=== PATIENT | female | born 1960 | race Caucasian/White ===

== ENCOUNTER 2019-11-17 07:36 | Emergency (ER) | payer OTHER ==
[~2019-11-17] VITALS: Ht 157.5 cm; Wt 57.0 kg
[2019-11-17 07:58] VITALS: BP 142/70
[2019-11-17] MEDS ORDERED: METH-38 PO (08:11)
[2019-11-17] MEDS ORDERED: HYDR-3164 PO (08:11)
[2019-11-17] MEDS ORDERED: PRED20TA PO (08:11)
[2019-11-17] MEDS ORDERED: NAPR-514 PO (08:11)
--- NOTE | 2019-11-17 08:12 | PHYS DOC ---
General Adult EDM: Chief Complaint: LOWER EXT PAIN HPI: HPI: Patient is a 59-year-old female with a history of sciatica. She states in June 2018 she originally injured her low back. Since that time she has had therapy and injections she has bulging disks and an annular tear that occasionally act up on her. It is been sometime since she is needed aggressive treatment on her back. Today she states that after working through the night she has a lot of pain in her back into her left buttock and down her left leg. She denies any bowel or bladder dysfunction. She does state that the pain feels like a lightening bolt down her leg. [] Review of Systems: Review of Systems: Constitutional: Denies fever or chills. [] Eyes: Denies change in visual acuity. [] HENT: Denies nasal congestion or sore throat. [] Respiratory: Denies cough or shortness of breath. [] Cardiovascular: Denies chest pain or edema. [] GI: Denies abdominal pain, nausea, vomiting, bloody stools or diarrhea. [] : Denies dysuria. [] Musculoskeletal: Per HPI. [] Integument: Denies rash. [] Neurologic: Denies headache, focal weakness or sensory changes. [] Endocrine: Denies polyuria or polydipsia. [] Lymphatic: Denies swollen glands. [] Psychiatric: Denies depression or anxiety. [] Heart Score: Risk Factors: Risk Factors: DM, Current or recent (<one month) smoker, HTN, HLP, family history of CAD, obesity. Risk Scores: Score 0 - 3: 2.5% MACE over next 6 weeks - Discharge Home Score 4 - 6: 20.3% MACE over next 6 weeks - Admit for Clinical Observation Score 7 - 10: 72.7% MACE over next 6 weeks - Early Invasive Strategies Physical Exam: PE: Constitutional: Well developed, well nourished, moderate distress, non-toxic appearance. [] HENT: Normocephalic, atraumatic, bilateral external ears normal, oropharynx moist, no oral exudates, nose normal. [] Eyes: PERRLA, EOMI, conjunctiva normal, no discharge. [] Neck: Normal range of motion, no tenderness, supple, no stridor. [] Cardiovascular:Heart rate regular rhythm, no murmur [] Lungs & Thorax: Bilateral breath sounds clear to auscultation [] Abdomen: Bowel sounds normal, soft, no tenderness, no masses, no pulsatile cat s. [] Skin: Warm, dry, no erythema, no rash. [] Back: Left paraspinal muscle spasm no midline vertebral tenderness. [] Extremities: No tenderness, no cyanosis, no clubbing, ROM intact, no edema. [] Neurologic: Alert and oriented X 3, normal motor function, 2+ patellar reflex on the left [] Psychologic: Depressed affect. [] EKG: EKG: [] Radiology/Procedures: Radiology/Procedures: [] Course & Med Decision Making: Course & Med Decision Making Pertinent Labs and Imaging studies reviewed. (See chart for details) [] Dragon Disclaimer: Dragon Disclaimer: This electronic medical record was generated, in whole or in part, using a voice recognition dictation system. Departure Departure Impression: Primary Impression: Sciatica Qualified Codes: M54.32 - Sciatica, left side Disposition: HOME, SELF-CARE Condition: STABLE Patient Instructions: Sciatica, Sciatica with Rehab-SportsMed Additional Instructions: You need to follow with your primary care physician and given the severity of your condition currently you will need another MRI scan. Scripts Methocarbamol (ROBAXIN-750) 750 Mg Tablet 1 TAB PO TID, #90 TAB Prov: YAMIL COY DO 11/17/19 Prednisone (PREDNISONE) 20 Mg Tablet 1 TAB PO TID PRN for SCIATICA for 5 Days, #15 TAB Prov: YAMIL COY DO 11/17/19 Hydrocodone/Apap 5-325 (NORCO 5-325 TABLET) 1 Each Tablet 1 TAB PO PRN Q6HRS PRN for PAIN, #15 TAB 0 Refills Prov: YAMIL COY DO 11/17/19 Naproxen (NAPROXEN) 500 Mg Tablet 1 TAB PO BID PRN for PAIN, #30 TAB 1 Refill Prov: AYMIL COY DO 11/17/19 Justicifation of Admission Dx: Justifications for Admission: Justification of Admission Dx: YAMIL Estrada DO Nov 17, 2019 08:11
[2019-11-17] MEDS ORDERED: KETOROLAC 60 MG/2 ML VIAL. IM ONE (08:15)
[2019-11-17] MEDS ORDERED: ORPHENADRINE CITRATE 60 MG/2 ML VIAL. IM ONE (08:15)
[2019-12-01] MEDS ORDERED: ESTR2TAB PO (11:16)
== END 2019-11-17 08:42 | disposition home or self-care (01) ==
LOC: ER 07:36
DX: M54.42 Lumbago with sciatica, left side (principal)
CPT/HCPCS: 96372; 99284; J1885; J2360

== ENCOUNTER → 2019-11-24 | Outpatient (CLI) | payer OTHER ==
[2019-11-17 07:58] VITALS: BP 142/70
[~2019-11-24] MED LIST: ESTR2TAB PO; HYDR-3164 PO; METH-38 PO; NAPR-514 PO; PRED20TA PO
--- NOTE | 2019-11-24 11:57 | KCIC ---
EXAM: Lumbar spine MRI without contrast. HISTORY: Radiculopathy. TECHNIQUE: Multiplanar, multisequence magnetic resonance imaging of the lumbar spine was performed without contrast. COMPARISON: None. FINDINGS: There is mild lumbar hyperlordosis and scoliosis. There is grade 1 anterolisthesis of L4 on L5. There is no suspicious osseous lesion. There is no fracture. The conus terminates at L1-L2. There are incidental left greater than right nerve root sheath cysts/perineural cysts at T11-T12 and on the right at T12-L1 and L3-L4. These are of no clinical significance. At L1-L2 and L2-L3, there is no stenosis. At L3-L4, there is a minimal disc bulge and endplate remodeling. There is no stenosis. At L4-L5, there is a minimal disc bulge and endplate remodeling. There is moderate left facet arthropathy with a 9 x 8 x 6 mm complex left facet joint synovial cyst projecting into the left posterior central canal. There is results in moderate central canal narrowing and deviation of the traversing nerve roots. There is also a small right posterior facet joint synovial cyst at this level measuring 6 mm. At L5-S1, there is a minimal disc bulge and endplate remodeling. There is severe right facet arthropathy. There is no stenosis. IMPRESSION: 1. L4-L5: 9 mm left facet joint synovial cyst projecting into the left posterior central canal and contributing to moderate central canal stenosis and deviation of the traversing nerve roots. 2. Degenerative change throughout the remainder of the lumbar spine, without significant foraminal or central canal stenosis. Electronically signed by: Kitty Bullock MD (11/24/2019 11:54 AM) [id number]
== END ==
LOC: KCIC MRI 10:48
PROVIDERS: ATTEND Nurse Practitioner Gerontology
DX: M47.26 Other spondylosis with radiculopathy, lumbar region (principal); M71.38 Other bursal cyst, other site
CPT/HCPCS: 72148

== ENCOUNTER → 2019-12-01 | Outpatient (CLI) | payer OTHER ==
[2019-11-17 07:58] VITALS: BP 142/70
[~2019-12-01] MED LIST changes: +IOHEXOL 180 MG/ML 10 ML VIAL. ONE; +methylPREDNISolone ACETATE 40 MG/ML VIAL. ONE; +methylPREDNISolone ACETATE 80 MG/ML VIAL. ONE
--- NOTE | 2019-12-01 11:39 | PDOC2 ---
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 Patient reports the pain began most immediately in the low back left lower extremity posterior gluteus posterior lateral thigh lateral anterior thigh medial thigh as well as the posterior knee. Patient reports it is constant now sharp stabbing shooting changes during the day worse with walking standing changing positions patient reports it wakes her from sleep least 2-3 times at night, does not affect her bowel bladder control but does affect her ability to walk she not use any assistive devices to ambulate. Patient has tried physical therapy as recently as last year also has had chiropractic treatment and epidural injections last year as well none of which is been significantly helpful for long period of time. Patient taken naproxen prednisone as well as methocarbamol all of which did not seem to decrease the pain significantly. Patient rates her disability rating 0-10 10 being the worst is an 8 with family home responsibilities recreation social activity occupation sexual behavior 6 with self-care and life support activities. Patient ports no loss of motor function but significant fatigability the left leg even with just standing for more than about 10 minutes. This also gets worse with bending and stooping. Patient did have a MRI scan lumbar spine showing L4-5 9 mm left facet joint synovial cyst projecting to the left posterior central canal contributing to moderate central canal stenosis and deviation of the transversing nerve roots. PAST MEDICAL HISTORY: PMH: No significant medical conditions patient is been in good health PREVIOUS SURGERIES: Past Surgical Hx: Total bowel hysterectomy 2009 x3, bilateral carpal tunnel release, right acromioplasty, cervical anterior fusion 2003 CURRENT MEDICATIONS: Current Meds: Active Scripts Medications Dose Route/Sig Max Daily Dose Days Date Category Estradiol 2 Mg Tablet 2 Mg PO DAILY 12/01/19 Reported Robaxin-750 (Methocarbamol) 750 Mg Tablet 1 Tab PO TID 11/17/19 Rx Prednisone 20 Mg Tablet 1 Tab PO TID PRN 5 11/17/19 Rx Naproxen 500 Mg Tablet 1 Tab PO BID PRN 11/17/19 Rx ALLERGIES; Allergies: Coded Allergies: doxycycline (Verified Adverse Reaction, Mild, Upset stomach, 11/17/19) FAMILY HISTORY: Family Hx: No major medical problems or conditions she is aware of SOCIAL HISTORY: Social Hx: Patient does not drink alcohol does not smoke not use any illegal illicit or recreational drugs is lives with her spouse in [facility]. 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 Extraocular movements are intact and symmetrical. Oral cavity: Mucous membranes moist and pink. Dentition is intact. NECK: Shows anterior throat supple without palpable lymphadenopathy noted. Swallow reflex symmetrical. CHEST: Shows normal on inspection. Breath sounds are clear bilaterally, no rales rhonchi or wheezes auscultated. HEART: Shows S1, S2 clear. No murmurs auscultated. ABDOMEN: Soft, nontender, nondistended. No palpable organomegaly is noted. No rebound or guarding demonstrated. BACK: Shows spine grossly in the midline. Normal-appearing cervical lordotic curvature. There is slightly increased thoracic kyphosis, some minor flattening of the lumbar lordotic curvature. Lumbar paraspinous muscles show symmetrical on inspection, on palpation shows some moderate tenderness diffusely throughout the upper, middle and lower distribution of the paraspinous muscles bilaterally, but without specific trigger points, without radiation of pain. The patient has good rotational motion of the lumbar spine, both laterally as well as extension and flexion without significant difficulty. No tenderness over the spinous processes, sacrum or sacroiliac regions. EXTREMITIES: Lower extremities show deep tendon reflexes 2+ in the patellar and tendo calcaneus tendons. Motor exam is 5 on a scale of 5 with right dorsiflexion, extension, quadriceps and hamstring flexion and 4/5 on the left. Peripheral pulses are 1+ posterior tibial. No peripheral edema is noted bilaterally. Lower extremities are warm and dry to touch, equal in color and appearance. Straight leg raise noted to be negative on the right, left side is positive at approximately 35 degrees decreased with knee flexion. Gaenslen's and Jesse's maneuvers are negative bilaterally as well. The patient is able to stand, stand on her toes without significant difficulty or loss of balance walks with a slight favoring gait favoring the left lower extremity but without any assistive devices.. SKIN: Shows warm and dry, good turgor. No edema. No sores, rashes or bruising throughout. IMPRESSION: Impression: 59-year-old female with 5-month history low back left lower extremity pain in a radicular fashion. MRI scan lumbar spine as noted Plan: Options discussed with the patient including conservative medical management physical therapies interventional techniques and she would like to pursue interventional techniques. We discussed a lumbar epidural steroid injection using description as well as anatomical models described procedure. Risks were then discussed including but not limited to bleeding infection possibility of epidural hematoma and subsequent neurological compromise dural puncture headache spinal cord and or nerve damage side effects of steroid medication and poor results regarding pain control. Patient understands wished to proceed. Patient return to clinic in approximate 2 weeks for follow-up was counseled as to return appointment activity level and side effects to be aware of. Procedure is lumbar epidural steroid injection under local anesthetic using sterile prep and drape at the L4-5 level using C-arm fluoroscopic guidance in both AP and lateral views medications injected is 120 mg Depo-Medrol + 10 mL preservative-free normal saline and 2 mL contrast- condition at discharge is stable patient tolerated procedure well had initial cerebrospinal fluid detected on needle placement with contrast confirming this. Needle was redirected to a more medial position with good preservative-free normal saline [id number] once again and negative aspiration with contrast confirming posterior spread in the epidural space. Postoperatively patient had positional headache but was allowed to lay recumbent and slowly raised to a sitting position in a 3-hour period with resolution of the headache. Patient was discharged in good and stable condition. DOMENICA SCHULER MD Dec 01, 2019 11:39
== END | disposition home or self-care (01) ==
LOC: PNCL 08:41
PROVIDERS: ATTEND Anesthesiology
DX: M54.5 Low back pain (principal); M79.662 Pain in left lower leg; Z88.8 Allergy status to other drugs, medicaments and biological substances; Z98.890 Other specified postprocedural states; Z79.899 Other long term (current) drug therapy
CPT/HCPCS: 62323; J1030; J1040; Q9965

== ENCOUNTER → 2019-12-20 | Outpatient (CLI) | payer OTHER ==
[~2019-12-20] MED LIST changes: -methylPREDNISolone ACETATE 80 MG/ML VIAL. ONE
--- NOTE | 2019-12-20 09:24 | PDOC ---
Progress Note - Pain Clinic Date of Service: DOS: DATE: 12/20/19 TIME: 09:21 Diagnosis: Dx: Lumbar radiculopathy with lumbar degenerative disc disease History or Present Illness: HPI: 59-year-old female returns follow-up status post lumbar epidural to injection x1. Patient was about 40% improvement in low back and left lower extremity pain. Patient reports still significant pain with standing walking and working rated a 7 on scale 10 is worse over the past week 6 on average 5 its least is a 6 today. Patient ports sharp and shooting coming more constant low back left lower extremity rating the posterior gluteus posterior thigh posterior calf as w ell as the lateral thigh and calf. She reports no new motor or sensory deficits no new bowel or bladder incontinence reports it does awaken her from sleep every 5-6 hours worse with standing walking positions better with sitting or laying down. She reports no new motor or sensory deficits no new bowel or bladder incontinence Physical Exam: VS: Pressure is 132/86 pulse 73 respirations 18 temperature 90.2 F height is 5 feet 2 inches weight is 125 pounds PE: PHYSICAL EXAMINATION: GENERAL: The patient is awake, alert, oriented, appropriate, very pleasant demeanor HEENT: Shows normocephalic, atraumatic. Extraocular movements are intact and symmetrical. Oral cavity: Mucous membranes moist and pink. Dentition is intact. NECK: Shows anterior throat supple without palpable lymphadenopathy noted. Swallow reflex symmetrical. CHEST: Shows normal on inspection. Breath sounds are clear bilaterally. HEART: Shows S1, S2 clear. No murmurs auscultated. ABDOMEN: Soft, nontender, nondistended. No palpable organomegaly is noted. No rebound or guarding demonstrated. BACK: Shows spine grossly in the midline. Normal-appearing cervical lordotic curvature. There is slightly increased thoracic kyphosis, some minor flattening of the lumbar lordotic curvature. Lumbar paraspinous muscles show symmetrical on inspection, on palpation shows some moderate tenderness diffusely throughout the upper, middle and lower distribution of the paraspinous muscles bilaterally, but without specific trigger points, without radiation of pain. The patient has good rotational motion of the lumbar spine, both laterally as well as extension and flexion without significant difficulty. No tenderness over the spinous processes, sacrum or sacroiliac regions. EXTREMITIES: Lower extremities show deep tendon reflexes 2+ in the patellar and tendo calcaneus tendons. Motor exam is 5 on a scale of 5 with right dorsiflexion, extension, quadriceps and hamstring flexion and 4/5 on the left. Peripheral pulses are 1+ posterior tibial. No peripheral edema is noted bilaterally. Lower extremities are warm and dry to touch, equal in color and appearance. SKIN: Shows warm and dry, good turgor. No edema. No sores, rashes or bruising throughout. Procedure: Procedure: Options were discussed with the patient. Patient's old chart was reviewed as her current medication regimen updated current review of systems updated today as well. We will proceed with a second in the series lumbar epidural steroid injection today with fluoroscopic guidance. Risks were discussed including but not limited to: Bleeding, infection, possibility of epidural hematoma and subsequent neurological compromise, dural puncture, headaches, spinal cord and/o r nerve damage, side effects of steroid medication, and poor results regarding pain control. Patient understands wished to proceed. Patient will return to the clinic in approximately 2 weeks for follow-up was counseled as to return appointment activity level and side effects to be aware of. Medication Injected: Med Injected: Procedure is lumbar epidural steroid injection under local anesthetic using sterile prep and drape at the L4-5 level using C-arm fluoroscopic guidance in both AP and lateral views medications injected is 120 mg Depo-Medrol + 10 mL preservative-free normal saline and 2 mL contrast- condition at discharge is stable patient tolerated procedure well had no complications. Condition at Discharge: Condition at Discharge: Distant discharge stable patient tolerated the procedure well had no complications. DOMENICA SCHULER MD Dec 20, 2019 09:24
== END | disposition home or self-care (01) ==
LOC: PNCL 08:41
PROVIDERS: ATTEND Anesthesiology
DX: M51.16 Intervertebral disc disorders with radiculopathy, lumbar region (principal); Z88.8 Allergy status to other drugs, medicaments and biological substances; Z79.899 Other long term (current) drug therapy
CPT/HCPCS: 62323; J1030; Q9965

== ENCOUNTER → 2020-03-13 | Outpatient (CLI) | payer OTHER ==
[~2020-03-13] MED LIST changes: +methylPREDNISolone ACETATE 80 MG/ML VIAL. ONE
--- NOTE | 2020-03-13 10:38 | PDOC ---
Progress Note - Pain Clinic Date of Service: DOS: DATE: 03/13/20 TIME: 10:34 Diagnosis: Dx: Lumbar to colopathy with lumbar degenerative disc disease History or Present Illness: HPI: 59-year-old female returns follow-up status post lumbar epidural steroid injection x2. Patient reports doing much better after the last injection with good reduction in pain for about 2 weeks following now about 60% level of pain but still improved. Patient reports pain low back left lower extremity posterior gluteus posterior lateral thigh lateral anterior thigh as was previously patient reports is worse with walking standing changing positions but much better after the last injection again patient reports the pain is returning. Patient scribes pain as stabbing and sharp shooting in the low back and left lower extremity becoming more constant with time standing and walking awaken her from sleep about every 5-6 hours. Patient ports no new motor or sensory deficits no new bowel or bladder incontinence. Physical Exam: VS: Blood pressures 126/76 pulse 66 respirations 18 temperature 24 F is 5 feet 2 inches weight is 130 pounds PE: PHYSICAL EXAMINATION: GENERAL: The patient is awake, alert, oriented, appropriate, very pleasant demeanor HEENT: Shows normocephalic, atraumatic. Extraocular movements are intact and symmetrical. Oral cavity: Mucous membranes moist and pink. Dentition is intact. NECK: Shows anterior throat supple without palpable lymphadenopathy noted. Swallow reflex symmetrical. CHEST: Shows normal on inspection. Breath sounds are clear bilaterally, no rales or rhonchi. HEART: Shows S1, S2 clear. No murmurs auscultated. ABDOMEN: Soft, nontender, nondistended. No palpable organomegaly is noted. No rebound or guarding demonstrated. BACK: Shows spine grossly in the midline. Normal-appearing cervical lordotic curvature. There is slightly increased thoracic kyphosis, some minor flattening of the lumbar lordotic curvature. Lumbar paraspinous muscles show symmetrical on inspection, on palpation shows some moderate tenderness diffusely throughout the upper, middle and lower distribution of the paraspinous muscles without specific trigger points, without radiation of pain. The patient has good rotational motion of the lumbar spine, both laterally as well as extension and flexion without significant difficulty. No tenderness over the spinous processes, sacrum or sacroiliac regions. EXTREMITIES: Lower extremities show deep tendon reflexes 2+ in the patellar and tendo calcaneus tendons. Motor exam is 5 on a scale of 5 with right dorsiflexion, extension, quadriceps and hamstring flexion and 4/5 on the left. Peripheral pulses are 1+ posterior tibial. No peripheral edema is noted bilaterally. Lower extremities are warm and dry to touch, equal in color and appearance. SKIN: Shows warm and dry, good turgor. No edema. No sores, rashes or bruising throughout. Procedure: Procedure: Options were discussed with the patient. Patient chart was reviewed as her current medication regimen updated current review of systems updated today as well. We will proceed with a third in the series lumbar epidural steroid injection today with fluoroscopic guidance. Risks were discussed including but not limited to: Bleeding, infection, possibility of epidural hematoma and subsequent neurological compromise, dural puncture, headaches, spinal cord and/or nerve damage, side effects of steroid medication, and poor results regarding pain control. Patient understands wished to proceed. Patient will return to clinic in approximate 2 weeks for follow-up was counseled as to return appointment activity level and side effects to be aware of. Patient also requesting referral for outside neurosurgical evaluation and we will look into this through her referral system with her primary physician as well. Medication Injected: Med Injected: Procedure is lumbar epidural steroid injection under local anesthetic using sterile prep and drape at the L4-5 level using C-arm fluoroscopic guidance in both AP and lateral views medications injected is 120 mg Depo-Medrol + 10 mL preservative-free normal saline and 2 mL contrast- condition at discharge is stable patient tolerated procedure well had no complications. Condition at Discharge: Condition at Discharge: Condition at discharge stable, patient tolerated procedure well and had no complications. DOMENICA SCHULER MD Mar 13, 2020 10:38
== END | disposition home or self-care (01) ==
LOC: PNCL 09:43
PROVIDERS: ATTEND Anesthesiology
DX: M51.36 Other intervertebral disc degeneration, lumbar region (principal); Z79.899 Other long term (current) drug therapy; Z88.1 Allergy status to other antibiotic agents
CPT/HCPCS: 62323; J1030; J1040; Q9965

== ENCOUNTER → 2020-04-24 | Outpatient (CLI) | payer OTHER ==
[~2020-04-24] MED LIST changes: -IOHEXOL 180 MG/ML 10 ML VIAL. ONE; -methylPREDNISolone ACETATE 40 MG/ML VIAL. ONE; -methylPREDNISolone ACETATE 80 MG/ML VIAL. ONE
--- NOTE | 2020-04-26 11:34 | RAD ---
EXAMINATION: MG BILAT SCREEN+CARLOS CLINICAL HISTORY: Routine screening TECHNIQUE: Digital craniocaudal and mediolateral oblique views of the bilateral breasts obtained with 3-D tomosynthesis. COMPARISON: Outside exams from 07/28/2018, 03/11/2017, 09/25/2015 BREAST COMPOSITION: There are scattered areas of fibroglandular density. FINDINGS: No evidence of suspicious mass, calcifications, or areas of architectural distortion. IMPRESSION: No mammographic evidence of malignancy. BI-RADS ASSESSMENT: Category 1: Negative RECOMMENDATION: Return for routine bilateral screening mammogram in one year. PQRS compliance statement - Patient information was entered into a reminder system with a target due date for the next mammogram. "Our facility is accredited by the [employer] Mammography Program." Electronically signed by: Shakeel Florez DO (04/26/2020 11:31 AM) [id number]
== END ==
LOC: MAMMO 15:25
PROVIDERS: ATTEND Nurse Practitioner Gerontology
DX: Z12.31 Encounter for screening mammogram for malignant neoplasm of breast (principal)
CPT/HCPCS: 77063; 77067

== ENCOUNTER → 2020-05-31 | Outpatient (CLI) | payer OTHER ==
[~2020-05-31] MED LIST changes: +DOCU-109 PO; +HYDR-2759 PO; +NAPR220C4 PO
[2020-05-31 13:04] LABS: BASO # 0.1 x10^3/uL (0.0-0.2); BASO % 1 % (0-3); EOS # 0.1 x10^3/uL (0.0-0.7); EOS % 2 % (0-3); HEMATOCRIT 35.5 % (36.0-47.0); LYMPH % 44 % (24-48); MEAN CORPUSCULAR HEMOGLOBIN 31 pg (25-35); MEAN CORPUSCULAR HGB CONC 34 g/dL (31-37); MEAN CORPUSCULAR VOLUME 90 fL (79-100); MONO # 0.4 x10^3/uL (0.0-1.1); MONO % 9 % (0-9); NEUT # 2.1 x10^3/uL (1.8-7.7); NEUT % 45 % (31-73); PLATELET COUNT 246 x10^3/uL (140-400); RED BLOOD COUNT 3.92 x10^6/uL (3.50-5.40); RED CELL DISTRIBUTION WIDTH 12.6 % (11.5-14.5); WHITE BLOOD COUNT 4.7 x10^3/uL (4.0-11.0)
[2020-05-31 13:16] LABS: ALBUMIN 3.3 g/dL (3.4-5.0); ALBUMIN/GLOBULIN RATIO 1.1 (1.0-1.7); CALCIUM 8.5 mg/dL (8.5-10.1); CREATININE 0.9 mg/dL (0.6-1.0); GFR 64.3; POTASSIUM 3.7 mmol/L (3.5-5.1); TOTAL BILIRUBIN 0.3 mg/dL (0.2-1.0); TOTAL PROTEIN 6.4 g/dL (6.4-8.2)
== END ==
LOC: SURGPAT 12:03
PROVIDERS: ATTEND Neurological Surgery
DX: Z01.812 Encounter for preprocedural laboratory examination (principal); M54.16 Radiculopathy, lumbar region; M71.30 Other bursal cyst, unspecified site
CPT/HCPCS: 36415; 80053; 85025; 87641

== ENCOUNTER 2020-06-05 07:34 | Day surgery (SDC) | payer OTHER ==
[~2020-06-05] VITALS: Ht 157.5 cm; Wt 63.5 kg
[~2020-06-05 07:34] MED LIST changes: +BACITRACIN 50,000 UNIT in IV NORMAL SALINE 1000ML BAG 1,000 ML IRR ONE; +BUPIVACAINE-EPI 0.5%-1:200000 MPF 30 ML VIAL. ONE; -DOCU-109 PO; +GELATIN SPONGE SIZE 100. ONE; -HYDR-2759 PO; +HYDROmorphone 2 MG/ML VIAL IVP PRN; +IV RINGERS,LACTATED 1000ML 1,000 ML IV SCH; +KETOROLAC 60 MG/2 ML VIAL. ONE; +MORPHINE SULFATE 2 MG/ML VIAL. IVP PRN; +PROCHLORPERAZINE 10 MG/2 ML VIAL. IVP PRN; +THROMBIN TOPICAL 20,000 UNIT SPRAY.SYRN KIT TP ONE; +fentaNYL PF VIAL 100 MCG/2 ML VIAL IVP PRN
[2020-06-05] MEDS ORDERED: GLYCOPYRROLATE 1 MG/5 ML VIAL. ONE (08:09)
[2020-06-05] MEDS ORDERED: MIDAZOLAM HCL/PF 2 MG/2 ML VIAL. ONE (08:10)
[2020-06-05] MEDS ORDERED: LIDOCAINE 2% PF 5 ML VIAL. ONE (08:10)
[2020-06-05] MEDS ORDERED: REMIFENTANIL 2 MG VIAL. IV ONE (08:10)
[2020-06-05] MEDS ORDERED: ONDANSETRON PF 4 MG/2 ML VIAL. ONE (08:10)
[2020-06-05] MEDS ORDERED: PROPOFOL 50 ML IV ONE ×2 (08:10→10:22)
[2020-06-05] MEDS ORDERED: NEOSTIGMINE METHYLSULFATE 5 MG/5 ML SYRINGE. ONE (08:10)
[2020-06-05] MEDS ORDERED: ROCURONIUM 50 MG/5 ML VIAL. ONE (08:10)
[2020-06-05] MEDS ORDERED: fentaNYL PF VIAL 100 MCG/2 ML VIAL ONE ×3 (08:10→11:50)
[2020-06-05] MEDS ORDERED: PROPOFOL 10 MG/ML (20ML) VIAL. IV ONE (08:10)
[2020-06-05] MEDS ORDERED: PHENYLEPHRINE 10 MG/ML VIAL. ONE ×2 (08:11→10:08)
[2020-06-05] MEDS ORDERED: DEXAMETHASONE SOD PHOS 4 MG/ML VIAL ONE (08:11)
[2020-06-05] MEDS ORDERED: ePHEDrine PF IN SALINE 50 MG/10 ML SYRINGE. IV ONE (09:04)
[2020-06-05] MEDS ORDERED: SEVOFLURANE 61 TO 120 MINUTES. IH ONE (09:38)
[2020-06-05] MEDS ORDERED: METH-38 PO (11:11)
[2020-06-05] MEDS ORDERED: HYDR-2759 PO (11:11)
[2020-06-05] MEDS ORDERED: DOCU-109 PO (11:11)
--- NOTE | 2020-06-05 11:12 | DISCH ---
DISCHARGE INSTRUCTIONS Condition on Discharge Condition on Discharge: Stable Activity After Discharge Activity Instructions for Disc: Activity as tolerated, Avoid exertion Other activity instructions: no driving for a week Bathing Instructions: Shower-keep dressing dry Lifting Instructions after Dis: No heavy lifting, No pulling or pushing, Do not lift >10 pounds Diet after Discharge Additional Diet Restrictions: resume home diet Wound Incision Care Wound/Incision Care: Ice to area for comfort Other wound/incision instructi: may remove dressing in 48 hours if dry then may shower, no soaking Contacting the after DC Call your doctor for: Concerns you may have Follow-Up Follow up with: Dr. Lagos's nurse in 2 weeks [phone] LIBAN LAGOS MD Jun 05, 2020 11:12
[2020-06-05] MEDS: fentaNYL PF VIAL 100 MCG/2 ML VIAL IVP PRN ×2 (12:01→12:41)
[2020-06-05] MEDS ORDERED: HYDROcodone/APAP 5/325MG 1 TAB TABLET ONE (12:34)
[2020-06-05] MEDS ORDERED: HYDROcodone/APAP 5/325MG 1 TAB TABLET PO ONE (12:45)
[2020-06-05 12:55] VITALS: BP 125/73
--- NOTE | 2020-06-05 14:01 | OP ---
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 OPERATION PERFORMED: Lumbar laminectomy, L4-5 with removal of synovial cyst and decompression of dura and nerve root. The operation was done with EMG monitoring, SSEP monitoring, fluoroscopy, microscopic dissection. SURGEON: Breezy Lagos M.D. LOSS PREVENTION RESEARCH ENGINEER: MICHAEL Tovar, assisted with the surgery. She assisted with the exposure, the removal of synovial cyst, as well as closure. OPERATIVE INDICATIONS: Cristine is a pleasant 60-year-old that developed intractable back and severe left leg pain and was found to have a large synovial cyst on imaging studies with stenosis at that level. I recommended lumbar microsurgery with removal of the cyst and decompression and she understood the surgery and wished to go ahead. DESCRIPTION OF PROCEDURE: Following general endotracheal anesthesia, the patient was positioned prone on the Mason table. Lumbar region prepped and draped in standard fashion. TIFFANY hose and AV impulse boots were applied for DVT prophylaxis. A microscope was draped. Fluoroscopy was draped and brought in the field. Monitoring was established. Ancef 2 grams was given less than 1 hour prior to initiation of surgery. Using fluoroscopic guidance, a midline incision was made over the L4-5 interspace. I dissected down through skin and subcutaneous tissue and reflected the paraspinal muscles and placed a [place] micro disk retractor, brought in the microscope and the remainder of surgery done with microscope using microscopic technique. I burred down a generous hemilaminotomy,to the midline and across underneath the midline and then I performed a very generous foraminotomy. I worked quite far superiorly to get above the scarring of the cyst and then began to tease it down. It was densely scarred onto the dura and I switched to a slightly more superficial layer and then carried my dissection down and removed this material markedly compressing the dura. Then, I began to peel away the layer against the dura, which I was largely able to remove. I worked circumferentially around the entire cyst. I worked laterally into the medial foramen and I assured myself that the region was completely decompressed. The dura was visualized. It was soft, freely mobile. I irrigated copiously with antibiotic solution. Hemostasis was excellent. I then removed the retractors and obtained hemostasis in the muscle and closed the wound with absorbable suture. The skin was closed with 4-0 subcuticular suture. I felt the surgery went very well. BREEZY LAGOS MD DR: JOSE/elissa JOB#: [id number] / [id number] POOJA
--- NOTE | 2020-06-07 17:08 | PATHOLOGY ---
[facility] Accession Number: [id number] . 01 Material submitted: . vertebral column - LUMBAR DECOMPRESSION AND SYNOVIAL CYST . 01 Clinical history: . LUMBAR LAMINECTOMY L4-5 REMOVAL OF SYNOVIAL CYST . 02 Diagnosis: Segments of fibrocartilaginous, fibroadipose, and synovial tissue and bone, lumbar decompression and synovial cyst removal: - Degenerative changes of fibrocartilaginous tissue. - Synovial cyst. 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 02 Comment: There is no evidence of an acute inflammatory process or malignancy. 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 02 Electronically signed: . Atif Iglesias MD, Pathologist NPI- [id number] . 01 Gross description: . The specimen is received in formalin, labeled "Cristine Rifle, lumbar decompression and synovial cyst". Received are multiple segments of light colindres soft and gritty tissue and bone, measuring 3.5 x 3.5 x 0.8 cm in aggregate dimensions. The specimen is submitted representatively in cassette A1, following light decalcification, to include the possible synovial tissue. (CAA; 06/06/2020) QAC/QAC 06/07/2020 1544 Local . 02 Pathologist provided ICD-10: M51.36 . 02 CPT . 775197, [id number] Specimen Comment: A courtesy copy of this report has been sent to [phone] Specimen Comment: Report sent to / Performed at: [address], [place], [place] [id number] MD Elbert Grande MD Phone: [phone] Performed at: 02 [facility] [address] [place], [place] [id number] MD Atif Iglesias MD Phone: [phone]
== END 2020-06-05 13:31 | disposition home or self-care (01) ==
LOC: SURG 07:34
PROVIDERS: ATTEND Neurological Surgery
DX: M48.061 Spinal stenosis, lumbar region without neurogenic claudication (principal); M54.16 Radiculopathy, lumbar region; M71.38 Other bursal cyst, other site; M19.90 Unspecified osteoarthritis, unspecified site; E11.9 Type 2 diabetes mellitus without complications; Z90.710 Acquired absence of both cervix and uterus; Z98.890 Other specified postprocedural states; Z79.899 Other long term (current) drug therapy; Z87.891 Personal history of nicotine dependence; Z88.8 Allergy status to other drugs, medicaments and biological substances; Z88.1 Allergy status to other antibiotic agents; Z20.822 Contact with and (suspected) exposure to COVID-19
CPT/HCPCS: 63267; 87426; 88304; 88311; 97116; 97162; 97530; A4213; A4364; A4556; A4930; A6254; A6258; C9803; J0690; J1100; J1885; J2250; J2370; J2405; J2704; J2710; J3010; J3490; J7030; U0003; 76000; A4222